=== PATIENT | female | born 1980 | race Caucasian/White ===

== ENCOUNTER 2019-07-04 18:58 | Emergency (ER) | payer OTHER ==
[2019-07-04 19:18] VITALS: BMI 38.2
--- NOTE | 2019-07-04 19:46 | PDOC ---
History of Present Illness - General Chief Complaint: Vomiting/Diarrhea Stated Complaint: VOMITTING DIARRHEA/ABD/PAIN Time Seen by Provider: 07/04/19 19:34 History Source: Patient Exam Limitations: No Limitations - History of Present Illness Initial Comments: 07/04/19 19:45 Margaret Gabriel is an otherwise healthy 39F presenting with nausea/vomiting/ diarrhea since 2AM this morning. Patient reports feeling well last night, came home from work at 3PM and ate a coworker's spaghetti. Went to sleep and woke up with nausea/vomiting and diarrhea. 6x NBNB emesis, more episodes of non-bloody diarrhea that has ceased at this time, but still feels nauseated and has [place] and periumbilical abdominal pain. Not tolerating PO at all today without vomiting. Has mild R breast pain, s/p breast implants, denies rash or fever associated. Denies chest pain, SOB, dizziness, weakness, vision changes. Complains of some wrist/knee pain that is new for her, denies physical injury. 6 months s/p hysterectomy, LMP before then, denies vaginal bleeding or discharge. Past History - Past Medical History Allergies/Adverse Reactions: Allergies Allergy/AdvReac Type Severity Reaction Status Date / Time No Known Allergies Allergy Verified 07/04/19 20:03 Home Medications: Ambulatory Orders Ondansetron [Zofran -] 4 mg PO QID PRN #8 tablet 07/04/19 COPD: No - Surgical History Cholecystectomy: Yes - Psycho Social/Smoking Cessation Hx Smoking History: Never smoked Hx Alcohol Use: No Drug/Substance Use Hx: No Review of Systems - Review of Systems Able to Perform ROS?: Yes Constitutional: No: Symptoms Reported HEENTM: No: Symptoms Reported Respiratory: No: Symptoms reported Cardiac (ROS): No: Symptoms Reported ABD/GI: Yes: Diarrhea, Nausea, Poor Appetite, Poor Fluid Intake, Vomiting. No: Constipated : No: Symptoms Reported Musculoskeletal: No: Symptoms Reported Integumentary: No: Symptoms Reported Neurological: Yes: Headache. No: Numbness, Paresthesia, Tremors, Weakness, Unsteady Gait, Ataxia Endocrine: No: Symptoms Reported Hematologic/Lymphatic: No: Symptoms Reported All Other Systems: Reviewed and Negative *Physical Exam - Vital Signs Last Vital Signs Temp Pulse Resp BP Pulse Ox 99.9 F H 104 H 18 118/70 97 12/08/19 19:11 07/04/19 19:11 07/04/19 19:11 07/04/19 19:11 07/04/19 19:11 - Physical Exam General Appearance: Yes: Nourished, Appropriately Dressed. No: Apparent Distress HEENT: positive: EOMI, STEVE, Normal Voice, Symmetrical, Pharynx Normal, Hearing Grossly Normal. negative: Scleral Icterus (R), Scleral Icterus (L), Pharyngeal Erythema, Tonsillar Exudate, Tonsillar Erythema Neck: positive: Trachea midline, Normal Thyroid, Rigid, Supple. negative: Tender, Lymphadenopathy (R), Lymphadenopathy (L) Respiratory/Chest: positive: Lungs Clear, Normal Breath Sounds. negative: Chest Tender, Respiratory Distress, Accessory Muscle Use, Crackles, Rales, Rhonchi, Stridor, Wheezing Cardiovascular: positive: Regular Rhythm, Regular Rate. negative: Murmur Gastrointestinal/Abdominal: positive: Normal Bowel Sounds, Tender (diffuse, + Zambrano), Flat, Soft. negative: Organomegaly, Pulsatile Mass Musculoskeletal: positive: Normal Inspection. negative: CVA Tenderness, Vertebral Tenderness Extremity: positive: Normal Capillary Refill, Normal Inspection, Normal Range of Motion, Pelvis Stable. negative: Tender Integumentary: positive: Normal Color, Dry, Warm Neurologic: positive: Fully Oriented, Alert, Normal Mood/Affect, Normal Response ED Treatment Course - LABORATORY CBC & Chemistry Diagram: 07/04/19 21:45 07/04/19 21:45 Medical Decision Making - Medical Decision Making 07/04/19 19:45 Margaret Gabriel is an otherwise healthy 39F presenting with nausea/vomiting/ diarrhea since 2AM this morning. Patient presents with N/V/D with joint pains and abd pain. Abdominal exam unconcerning for rebound/guarding. Consistent with food poisoning vs. gastritis vs. GB pathology. CBC CMP ECG for breast pain Lipase Mag/Phos Rapid Influenza Giving 1L NS, Ofirmev, and Zofran/Maalox for nausea 07/04/19 23:12 ECG shows sinus tachycardia, HR 106, QRS 70, QTc 435. No evidence of ischemic changes or TWI. Patient feels better, not nauseated. Stable to be discharged home with PMD f/u. Script for Zofran sent for nausea. Discharge - Discharge Information Problems reviewed: Yes Clinical Impression/Diagnosis: Nausea & vomiting Qualifiers: Vomiting type: unspecified Vomiting Intractability: non-intractable Qualified Code(s): R11.2 - Nausea with vomiting, unspecified Condition: Stable Disposition: HOME - Admission No - Additional Discharge Information Prescriptions: Ondansetron [Zofran -] 4 mg PO QID PRN #8 tablet PRN Reason: Nausea - Follow up/Referral - Patient Discharge Instructions Patient Printed Discharge Instructions: DI for Food Poisoning Additional Instructions: Today you were evaluated for nausea/vomiting/diarrhea. We evaluated your blood labs and found no evidence of electrolyte abnormalities , anemia, or infection. We gave you medications called Zofran and Maalox for nausea, as well as IV fluids, and your nausea improved. Your symptoms are likely due to food poisoning. At home, please drink lots of fluids, eat bland food, drink soup to stay hydrated. Your symptoms will resolve in the next week. We have sent a prescription for Zofran to your pharmacy for nausea. Please see your primary doctor in the next 3 days for further care. If you experience worsening nausea/vomiting, vomit blood, have fever, worse abdominal pain, palpitations, or have any other new or concerning symptoms, please return to the emergency room. - Post Discharge Activity Work/Back to School Note: Back to Work
[2019-07-04] MEDS ORDERED: SODIUM CHLORIDE 0.9% 500 ML INFUS.BAG IV ONE (20:04)
[2019-07-04] MEDS ORDERED: ONDANSETRON 4 MG/2 ML VIAL IVPUSH ONE (20:04)
[2019-07-04] MEDS ORDERED: ACETAMINOPHEN 1000 MG/100 ML VIAL (NON FORMULARY) IVPB ONE (20:04)
[2019-07-04 21:55] LABS: BASO % 0.6 % (0-2.0); EOS % 0.3 % (0-4.5); HEMATOCRIT 42.6 % (32.4-45.2); HEMOGLOBIN 14.3 GM/dL (10.7-15.3); LYMPH % 11.2 % (8-40); MCH 28.3 pg (25.7-33.7); MCHC 33.5 g/dl (32.0-36.0); MEAN CELL VOLUME 84.5 fl (80-96); MEAN PLT VOLUME 8.9 fl (7.5-11.1); MONO % 5.5 % (3.8-10.2); NEUT % 82.4 % (42.8-82.8); PLATELET COUNT 199 K/MM3 (134-434); RBC 5.03 M/mm3 (3.60-5.2); RDW 14.4 % (11.6-15.6); WHITE BLOOD COUNT 5.4 K/mm3 (4.0-10.0)
[2019-07-04 22:22] LABS: ALBUMIN 3.6 g/dl (3.4-5.0); BILIRUBIN,TOTAL 0.7 mg/dL (0.2-1); BLOOD UREA NITROGEN 6.6 mg/dL (7-18); CALCIUM 8.4 mg/dL (8.5-10.1); CREATININE 0.7 mg/dL (0.55-1.3); PHOSPHOROUS 2.3 mg/dL (2.5-4.9); POTASSIUM 3.7 mmol/L (3.5-5.1); TOT PROT 7.3 g/dl (6.4-8.2)
[2019-07-04] MEDS ORDERED: ACETAMINOPHEN INJECTION 100 ML IVPB ONE (22:45)
[2019-07-04] MEDS ORDERED: ONDANSETRON 4 MG/2 ML VIAL ONE (22:45)
--- NOTE | 2019-07-04 23:05 | PDOC ---
Documentation entered by Rk Perera SCRIBE, acting as scribe for Clarissa Chang MD. Clarissa Chang MD: This documentation has been prepared by the [facility] head Nirvannie, SCRIBE, under my direction and personally reviewed by me in its entirety. I confirm that the documentation accurately reflects all work, treatment, procedures, and medical decision making performed by me. Attending Attestation - Resident Resident Name: Jose Khan - ED Attending Attestation I have performed the following: I have examined & evaluated the patient, The case was reviewed & discussed with the resident, I agree w/resident's findings & plan - HPI HPI: 07/04/19 21:48 The patient is a 39 year old female, who presents to the emergency department with, 1 day of nausea, vomiting, and diarrhea. As per patient, her symptoms onset at 2am. Allergies: NKDA - Physicial Exam PE: 07/04/19 23:04 Well-nourished well-developed 39-year-old female presents with nausea vomiting and diarrhea Head is normocephalic atraumatic Neck is supple Lungs are clear to auscultation bilaterally CVS regular rate and rhythm S1-S2 Abdomen there is no guarding, no rebound it is soft nontender She has no flank pain Skin is warm and dry Neuro alert and oriented x3, moving all her extremities purposefully, no gross focal neuro deficits - Medical Decision Making 07/04/19 23:06 Review of her labs CBC is unremarkable there is no leukocytosis and no anemia Chemistries show normal creatinine, glucose and electrolytes imp gastroenteritis d/c home
[2019-07-04 23:17] LABS: PH,URINE 5.5 (5.0-8.0); URINE APPEARANCE CLEAR; URINE BILIRUBIN NEGATIVE (NEGATIVE); URINE COLOR YELLOW; URINE GLUCOSE (UA) NEGATIVE (NEGATIVE); URINE KETONE NEGATIVE (NEGATIVE); URINE LEUK ESTERASE NEGATIVE (NEGATIVE); URINE NITRITE NEGATIVE (NEGATIVE); URINE PROTEIN NEGATIVE (NEGATIVE); URINE UROBILINOGEN 0.2 mg/dL (0.2-1.0)
[2019-07-05 00:50] VITALS: BP 119/67; PULSE 95; TEMP 99.1
--- NOTE | 2019-07-05 15:35 | EKG ---
Test Reason : Blood Pressure : / mmHG Vent. Rate : 106 BPM Atrial Rate : 106 BPM P-R Int : 130 ms QRS Dur : 070 ms QT Int : 328 ms P-R-T Axes : 037 -01 033 degrees QTc Int : 435 ms SINUS TACHYCARDIA OTHERWISE NORMAL ECG WHEN COMPARED WITH ECG OF 19-AUG-2000 23:35, PREMATURE SUPRAVENTRICULAR COMPLEXES ARE NO LONGER PRESENT VENT. RATE HAS INCREASED Confirmed by LEAH PAEZ, JEFFEYR ([id number]) on 07/05/2019 3:34:50 PM Referred By: Confirmed By:JEFFERY LYNN MD
== END 2019-07-04 23:10 | disposition home or self-care (01) ==
LOC: JER 18:58
PROC: 3E033NZ Introduction of Analgesics, Hypnotics, Sedatives into Peripheral Vein, Percutaneous Approach (ICD-10-PCS; principal; 2019-07-04)
PROC: 3E033GC Introduction of Other Therapeutic Substance into Peripheral Vein, Percutaneous Approach (ICD-10-PCS; 2019-07-04)
DX: R11.2 Nausea with vomiting, unspecified (principal)
CPT/HCPCS: 36415; 80053; 81003; 83690; 83735; 84100; 85025; 87086; 93005; 93010; 99282-25; J0131

== ENCOUNTER 2021-04-30 15:04 | Emergency (ER) | payer OTHER ==
[2021-04-30 15:29] VITALS: TEMP 98.3; BMI 42.2
[2021-04-30] MEDS ORDERED: MECLIZINE HCL 25 MG TABLET (FP) PO ONE (16:45)
[2021-04-30] MEDS ORDERED: MECLIZINE HCL 25 MG TABLET (FP) ONE (16:47)
[2021-04-30 17:42] LABS: PH,URINE 6.5 (5.0-8.0); URINE APPEARANCE CLEAR; URINE BILIRUBIN NEGATIVE (NEGATIVE); URINE COLOR YELLOW; URINE GLUCOSE (UA) NEGATIVE (NEGATIVE); URINE KETONE NEGATIVE (NEGATIVE); URINE LEUK ESTERASE NEGATIVE (NEGATIVE); URINE NITRITE NEGATIVE (NEGATIVE); URINE PROTEIN NEGATIVE (NEGATIVE); URINE UROBILINOGEN 0.2 mg/dL (0.2-1.0)
[2021-04-30 17:44] LABS: HCG,QUALITATIVE URINE Negative
[2021-04-30 18:36] VITALS: BP 139/90; PULSE 70
== END 2021-04-30 19:55 | disposition home or self-care (01) ==
LOC: JER 15:04
DX: R42 Dizziness and giddiness (principal)
CPT/HCPCS: 70450-TC; 81003; 84703; 87086; 87186; 93005; 93010; 99285-25; C9803; U0003; U0005

== ENCOUNTER 2022-06-21 17:10 | Emergency (ER) | payer OTHER ==
[2022-06-21 17:39] VITALS: BP 112/48; PULSE 131; RESP 20; TEMP 101.3; BMI 41.1
[2022-06-21] MEDS ORDERED: IBUPROFEN 600 MG TABLET (FP) PO ONE (18:21)
== END 2022-06-21 18:27 | disposition home or self-care (01) ==
LOC: JER 17:10
DX: J06.9 Acute upper respiratory infection, unspecified (principal)
CPT/HCPCS: 0241U-QW; 99283-25